=== PATIENT | male | born 1950 | race Caucasian/White ===

== ENCOUNTER 2016-09-08 12:29 | Emergency (ER) | payer MEDICARE ==
[~2016-09-08] VITALS: Ht 182.9 cm; Wt 55.3 kg
[2016-09-08] MEDS ORDERED: DIVA500T2 PO (12:45)
[2016-09-08] MEDS ORDERED: QUET25TA PO (12:45)
[2016-09-08] MEDS ORDERED: LORA0.5T PO (12:45)
[2016-09-08] MEDS ORDERED: CARV6.252 PO (12:45)
[2016-09-08] MEDS ORDERED: TEMA7.5C2 PO (12:45)
[2016-09-08] MEDS ORDERED: ATOR80TA26 PO (12:45)
[2016-09-08] MEDS ORDERED: HYDR4TAB4 PO (12:45)
[2016-09-08] MEDS ORDERED: WARF2TAB6 PO (12:45)
[2016-09-08] MEDS ORDERED: FURO-152 PO (12:45)
[2016-09-08] MEDS ORDERED: CLOP75TA33 PO (12:45)
[2016-09-08] MEDS ORDERED: GABA300T25 PO (12:45)
[2016-09-08] MEDS ORDERED: QUET50TA PO (12:45)
[2016-09-08] MEDS ORDERED: OXYB5TAB11 PO (12:45)
[2016-09-08] MEDS ORDERED: PANT40TA2 PO (12:45)
[2016-09-08] MEDS ORDERED: HYDROMORPHONE HCL 2 MG TABLET PO ONE (13:15)
[2016-09-08] MEDS ORDERED: HYDROMORPHONE HCL 2 MG TABLET ONE (13:33)
[2016-09-08] MEDS ORDERED: TERBUTALINE SULFATE 1 MG/1 ML VIAL SQ ONE (13:45)
[2016-09-08] MEDS ORDERED: HYDROMORPHONE 1 MG/1 ML DISP.SYRIN IV ONE (13:45)
--- NOTE | 2016-09-08 14:06 | NUR ---
Pt states his pain is improved, u/s tech at bedside for u/s.
--- NOTE | 2016-09-08 15:10 | NUR ---
Written and verbal after care instructions given. Patient verbalizes understanding of instructions. [facility] called for transport back to [facility], eta 45 mins.
--- NOTE | 2016-09-08 15:15 | NUR ---
Called [facility] and gave telephone report to
[2016-09-08 16:27] VITALS: BP 119/74
--- NOTE | 2016-09-08 16:28 | NUR ---
Pt d/c back to [facility] via [facility] ambulance. Written ACI, Rx for Dilaudid, and copy of x-ray given to transport EMT.
== END 2016-09-08 16:57 | disposition home or self-care (01) ==
LOC: ER 12:29
DX: S97.81XA Crushing injury of right foot, initial encounter (principal); I10 Essential (primary) hypertension; J44.9 Chronic obstructive pulmonary disease, unspecified; F31.9 Bipolar disorder, unspecified; F41.9 Anxiety disorder, unspecified; E78.5 Hyperlipidemia, unspecified; Z86.73 Personal history of transient ischemic attack (TIA), and cerebral infarction without residual deficits; Z79.01 Long term (current) use of anticoagulants; W23.0XXA Caught, crushed, jammed, or pinched between moving objects, initial encounter; Y93.89 Activity, other specified; Y99.8 Other external cause status; Y92.89 Other specified places as the place of occurrence of the external cause
CPT/HCPCS: 73630; A4663